=== PATIENT | female | born 1945 | race Asian ===

== ENCOUNTER 2024-11-11 08:33 | Emergency (ER) | payer MEDICARE ==
[~2024-11-11] VITALS: Ht 154.9 cm; Wt 53.5 kg
[2024-11-11] MEDS ORDERED: LIDOCAINE 5% (PATCH) 1 EA PATCH TP ONE (08:55)
[2024-11-11] MEDS ORDERED: ACETAMINOPHEN ES 500 MG TABLET ONE ×2 (08:55→08:56)
[2024-11-11] MEDS: LIDOCAINE 5% (PATCH) 1 EA PATCH TP SCH (09:02)
[2024-11-11] MEDS: ACETAMINOPHEN ES 500 MG TABLET PO ONE (09:02)
[2024-11-11 09:10] LABS: BASOPHILS % (AUTO) 0.4 % (0.0-2.0); EOSINOPHILS % (AUTO) 0.4 % (0.0-6.0); HEMATOCRIT 41 % (33-45); HEMOGLOBIN 14.1 g/dL (11.5-14.8); LYMPHOCYTES # (AUTO) 1.3 K/uL (0.8-4.8); LYMPHOCYTES % (AUTO) 19.2 % (20.0-44.0); MEAN CORPUSCULAR HEMOGLOBIN 31 PG (26.0-33.0); MEAN CORPUSCULAR HGB CONC 34 g/dl (31.0-36.0); MEAN CORPUSCULAR VOLUME 92 fL (82-100); MONOCYTES # (AUTO) 0.3 K/uL (0.1-1.30); MONOCYTES % (AUTO) 5.1 % (2.0-12.0); NEUTROPHILS % (AUTO) 74.9 % (43.0-81.0); PLATELET COUNT (AUTO) 221 K/uL (150-450); RED CELL DISTRIBUTION WIDTH 12.6 % (11.5-15.0); WHITE BLOOD COUNT (AUTO) 6.6 K/uL (4.3-11.0)
[2024-11-11 09:24] LABS: CALCIUM, SERUM 9.1 mg/dL (8.5-10.1); CREATININE 0.7 mg/dL (0.6-1.3); POTASSIUM 3.9 mmol/L (3.5-5.1)
[2024-11-11 09:27] LABS: ALBUMIN 3.3 g/dL (3.4-5.0); BILIRUBIN,TOTAL 0.7 mg/dL (0.2-1.0); TOTAL PROTEIN, SERUM 8.2 g/dL (6.4-8.2)
[2024-11-11] MEDS ORDERED: ACET-2030 PO ×2 (10:34→15:56)
[2024-11-11] MEDS ORDERED: LIDO30AD10 TP ×2 (10:34→15:56)
[2024-11-11] MEDS ORDERED: AMLODIPINE BESYLATE 5 MG TABLET ONE (11:42)
[2024-11-11] MEDS: AMLODIPINE BESYLATE 5 MG TABLET PO ONE (11:44)
[2024-11-11 12:31] VITALS: BP 185/98; TEMP 98.5; O2SAT 100
== END 2024-11-11 11:45 | disposition home or self-care (01) ==
LOC: ER 08:35
DX: M54.50 Low back pain, unspecified (principal); I10 Essential (primary) hypertension; M54.2 Cervicalgia; W18.39XA Other fall on same level, initial encounter; Y93.89 Activity, other specified; Y92.89 Other specified places as the place of occurrence of the external cause; Y99.8 Other external cause status
CPT/HCPCS: 36415; 70450-TC; 72125-TC; 72128-TC; 72131-TC; 80053-TC; 84484-TC; 85025-TC

== ENCOUNTER 2025-05-10 14:54 | Emergency (ER) | payer MEDICARE ==
[~2025-05-10] VITALS: Ht 152.4 cm; Wt 51.3 kg
[~2025-05-10 14:54] MED LIST: ACET-2030 PO; LIDO30AD10 TP
[2025-05-10 15:27] LABS: PLATELET COUNT (AUTO) 238 K/uL (150-450); RED BLOOD CELL COUNT(AUTO) 4.23 MIL/uL (4.0-5.2); RED CELL DISTRIBUTION WIDTH 12.4 % (11.5-15.0); WHITE BLOOD COUNT (AUTO) 7.3 K/uL (4.3-11.0)
[2025-05-10 15:37] LABS: CALCIUM, SERUM 8.8 mg/dL (8.5-10.1); CREATININE 0.9 mg/dL (0.6-1.3); SODIUM SERUM 142 mmol/L (136-145); UREA NITROGEN, BLOOD 18 mg/dL (7-18)
[2025-05-10] MEDS: IV NS 0.9% 500 ML BAG IV ONE (15:46)
[2025-05-10 17:48] VITALS: BP 131/78; TEMP 98.9; O2SAT 97
== END 2025-05-10 17:49 | disposition home or self-care (01) ==
LOC: ER 15:05
DX: R53.1 Weakness (principal); R05.9 Cough, unspecified; I10 Essential (primary) hypertension
CPT/HCPCS: 99285; 71045; 93005; 85025; 80048; 36415; 84484; J7040